=== PATIENT | female | born 1975 | race Caucasian/White ===

== ENCOUNTER 2018-03-25 17:31 | Emergency (ER) | payer BC ==
[~2018-03-25] VITALS: Ht 165.1 cm; Wt 61.0 kg
[2018-03-25 18:35] LABS: HEMATOCRIT 37.6 % (36.0-46.0); HEMOGLOBIN 12.8 G/DL (11.9-15.5); MCH 33.2 PG (29.0-34.0); MCV 97.4 FL (83-99); PLATELET COUNT 200 K/uL (156-360); RBC DIS.WIDTH-SD 43.1 % (39-53); RED BLOOD COUNT 3.86 M/uL (3.80-5.20); WHITE BLOOD COUNT 5.2 K/uL (4.1-10.2)
[2018-03-25 18:43] LABS: CHLORIDE 105 mEq/L (99-109); POTASSIUM 3.8 mEq/L (3.7-5.4); SODIUM 140 mEq/L (136-147)
[2018-03-25 18:44] LABS: GLUCOSE 88 mg/dL (70-99)
[2018-03-25 18:48] LABS: CREATININE 0.9 mg/dL (0.6-1.3); GFR ESTIMATE (CALCULATED) > 59 mL/min/
[2018-03-25 18:49] LABS: UREA NITROGEN (BUN) 16 mg/dL (9-23)
[2018-03-25 18:56] LABS: QUANTITATIVE HCG < 4.0 MIU/ML
[2018-03-25 20:54] LABS: APPEARANCE CLEAR ((CLEAR)); BILIRUBIN NEGATIVE; BLOOD NEGATIVE; COLOR YELLOW ((YELLOW)); GLUCOSE (STRIP) NEGATIVE; KETONES NEGATIVE; LEUKOCYTES NEGATIVE; NITRITE NEGATIVE; PROTEIN (STRIP) NEGATIVE; SPECIFIC GRAVITY 1.048 (1.000-1.030); UROBILINOGEN 0.2 MG/DL (0.2-1.0)
[2018-03-25 22:51] VITALS: BP 124/75
== END 2018-03-25 22:30 | disposition home or self-care (01) ==
LOC: EME 17:31
PROVIDERS: Physician Assistant
DX: K59.00 Constipation, unspecified (principal); K58.9 Irritable bowel syndrome, unspecified; Z87.891 Personal history of nicotine dependence
CPT/HCPCS: 74177; 80048; 81003; 84702; 85027; 99281; 99284; J7030